=== PATIENT | female | born 1975 | race African-American/Black ===

== ENCOUNTER 2017-11-04 12:13 | Emergency (ER) | payer BC ==
[~2017-11-04] VITALS: Ht 154.9 cm; Wt 68.0 kg
[2017-11-04 12:30] VITALS: BP 132/81
[2017-11-04 12:45] VITALS: BP 132/81
[2017-11-04 12:55] LABS: BASOPHILS % (AUTO) 1.4 % (0.0-2.0); EOSINOPHILS % (AUTO) 3.1 % (0.0-3.0); LYMPHOCYTES % (AUTO) 28.9 % (20.0-45.0); MEAN CORPUSCULAR HEMOGLOBIN 21.2 PG (27.0-31.0); MEAN CORPUSCULAR HGB CONC 28.8 G/DL (32.0-36.0); MEAN CORPUSCULAR VOLUME 74 FL (80-99); MEAN PLATELET VOLUME 5.9 FL (6.5-10.1); NEUTROPHILS % (AUTO) 57.7 % (45.0-75.0); PLATELET COUNT 440 K/UL (150-450); RED CELL DISTRIBUTION WIDTH 15.8 % (11.6-14.8); WHITE BLOOD COUNT 6.5 K/UL (4.8-10.8)
[2017-11-04 13:00] LABS: ANION GAP 8 mmol/L (5-15); CARBON DIOXIDE 28 MMOL/L (21-32); CHLORIDE 105 MMOL/L (98-107); CREATININE 0.9 MG/DL (0.55-1.30); GLOMERULAR FILTRATION RATE > 60 mL/min (>60); POTASSIUM 3.5 MMOL/L (3.5-5.1); SODIUM 141 MMOL/L (136-145)
[2017-11-04 13:04] LABS: ALANINE AMINOTRANSFERASE 10 U/L (12-78); AMYLASE 77 U/L (25-115); ASPARTATE AMINO TRANSFERASE 9 U/L (15-37); BILIRUBIN,DIRECT 0.1 MG/DL (0.0-0.3); PHOSPHORUS 3.3 MG/DL (2.5-4.9); TOTAL PROTEIN 7.8 G/DL (6.4-8.2)
[2017-11-04] MEDS ORDERED: Isentress 400mg tab ORAL SCH (13:30)
[2017-11-04] MEDS ORDERED: TRUVADA 200 MG1 EAC1 ORAL (13:35)
[2017-11-04] MEDS ORDERED: ISENTRESS400 MG ORAL (13:35)
--- NOTE | 2017-11-05 12:35 | Emergency Room Report ---
History of Present Illness General Chief Complaint: General Complaint Source: Patient Present Illness HPI The patient is a 42-year-old female presenting for left index finger needlestick injury. She states that she was injecting her father who has HIV and after removing the needle from him she stuck her left index finger. She states that she cleaned the area with soap and water. This occurred last night. She denies any other known medical conditions of her father but states that hepatitis is unlikely. She denies any pain. She denies any other symptoms. She denies any medical history for herself Allergies: Coded Allergies: No Known Allergies (Unverified , 11/04/17) Patient History Past Medical History: see triage record Pertinent Family History: none Last Menstrual Period: 10/31/2017 Reviewed Nursing Documentation: PMH: Agreed, PSxH: Agreed Nursing Documentation-PM Past Medical History: No Stated History Review of Systems All Other Systems: negative except mentioned in HPI Physical Exam Vital Signs Date Time Temp Pulse Resp B/P (MAP) Pulse Ox O2 Delivery O2 Flow Rate FiO2 11/04/17 12:20 97.9 82 16 132/81 100 Room Air Sp02 EP Interpretation: reviewed, normal General Appearance: no apparent distress, alert, GCS 15, non-toxic Head: normocephalic, atraumatic Eyes: bilateral eye normal inspection, bilateral eye PERRL ENT: hearing grossly normal, normal pharynx, no angioedema, normal voice Neck: full range of motion, supple/symm/no masses Respiratory: chest non-tender, lungs clear, normal breath sounds, speaking full sentences Musculoskeletal: back normal, gait/station normal, normal range of motion Neurologic: alert, oriented x3, responsive, motor strength/tone normal, sensory intact, speech normal Psychiatric: judgement/insight normal, memory normal, mood/affect normal, no suicidal/homicidal ideation Skin: normal turgor, laceration - Left index finger distal palmar surface has a small erythematous lesion consistent with a needle stick injury. No bleeding Lymphatic: no adenopathy Medical Decision Making PA Attestation Dr. Tobar is my supervising physician. Patient management was discussed with my supervising physician Diagnostic Impression: Primary Impression: HIV exposure ER Course The patient is a 42-year-old female presenting for left index finger needlestick injury Differential diagnoses considered but not limited to: HIV exposure, hepatitis exposure, laceration, contusion PE: NAD Left index finger distal palmar surface has a small erythematous lesion consistent with a needle stick injury. No bleeding No surrounding erythema All blood work is unremarkable. HIV test is negative The patient be treated with two anti-virals every 2 known HIV exposure. She will follow up with her primary doctor within 30 days. ER precautions given Laboratory Tests Test 11/04/17 12:40 White Blood Count 6.5 K/UL (4.8-10.8) Red Blood Count 4.50 M/UL (4.20-5.40) Hemoglobin 9.6 G/DL (12.0-16.0) L Hematocrit 33.2 % (37.0-47.0) L Mean Corpuscular Volume 74 FL (80-99) L Mean Corpuscular Hemoglobin 21.2 PG (27.0-31.0) L Mean Corpuscular Hemoglobin Concent 28.8 G/DL (32.0-36.0) L Red Cell Distribution Width 15.8 % (11.6-14.8) H Platelet Count 440 K/UL (150-450) Mean Platelet Volume 5.9 FL (6.5-10.1) L Neutrophils (%) (Auto) 57.7 % (45.0-75.0) Lymphocytes (%) (Auto) 28.9 % (20.0-45.0) Monocytes (%) (Auto) 9.0 % (1.0-10.0) Eosinophils (%) (Auto) 3.1 % (0.0-3.0) H Basophils (%) (Auto) 1.4 % (0.0-2.0) Urine HCG, Qualitative Negative Sodium Level 141 MMOL/L (136-145) Potassium Level 3.5 MMOL/L (3.5-5.1) Chloride Level 105 MMOL/L (98-107) Carbon Dioxide Level 28 MMOL/L (21-32) Anion Gap 8 mmol/L (5-15) Blood Urea Nitrogen 8 mg/dL (7-18) Creatinine 0.9 MG/DL (0.55-1.30) Estimate Glomerular Filtration Rate > 60 mL/min (>60) Glucose Level 90 MG/DL (74-106) Calcium Level 9.0 MG/DL (8.5-10.1) Phosphorus Level 3.3 MG/DL (2.5-4.9) Total Bilirubin 0.5 MG/DL (0.2-1.0) Direct Bilirubin 0.1 MG/DL (0.0-0.3) Aspartate Amino Transferase (AST) 9 U/L (15-37) L Alanine Aminotransferase (ALT) 10 U/L (12-78) L Alkaline Phosphatase 56 U/L (46-116) Total Protein 7.8 G/DL (6.4-8.2) Albumin 3.6 G/DL (3.4-5.0) Amylase Level 77 U/L (25-115) Hepatitis B Surface Antibody Pending Hepatitis C Antibody Pending HIV (1&2) Antibody Rapid Negative (NEGATIVE) Lab Results Impression All blood work is unremarkable. HIV test is negative Last Vital Signs Date Time Temp Pulse Resp B/P (MAP) Pulse Ox O2 Delivery O2 Flow Rate FiO2 11/04/17 12:45 98.0 82 16 132/81 100 Room Air Status: improved Disposition: HOME, SELF-CARE Condition: Improved Scripts Raltegravir (Isentress) 400 Mg Tablet 400 MG ORAL EVERY 12 HOURS, #60 TAB Prov: CHARLES JOE.Magaly. 11/04/17 Emtricitabine/Tenofovir 200-300MG* (TRUVADA 200-300MG*) 1 Each Tablet 1 TAB ORAL DAILY, #30 TAB Prov: CHARLES JOE.Magaly. 11/04/17 Patient Instructions: Needle Stick Injury Additional Instructions: I discussed my findings with the patient. All questions and concerns have been answered. Treatment and medication compliance have been addressed. Return to ED if symptoms worsen, new symptoms arise, or if needed for any reason. Patient verbalized understanding of discharge instructions. You were informed to see your primary doctor within one month for follow up. CHARLES JOE Nov 05, 2017 12:35
== END 2017-11-04 14:35 | disposition home or self-care (01) ==
LOC: EMR 13:20
DX: S61.211A Laceration without foreign body of left index finger without damage to nail, initial encounter (principal); W46.0XXA Contact with hypodermic needle, initial encounter; Y92.9 Unspecified place or not applicable; Z20.6 Contact with and (suspected) exposure to human immunodeficiency virus [HIV]
CPT/HCPCS: 36415; 80069; 80076; 81025; 82150; 85025; 86703; 86803; 87517; 99283

== ENCOUNTER 2018-01-30 06:17 | Emergency (ER) | payer SELFPAY ==
[~2018-01-30] VITALS: Ht 162.6 cm; Wt 80.7 kg
[~2018-01-30 06:17] MED LIST: ISENTRESS400 MG ORAL; TRUVADA 200 MG1 EAC1 ORAL
[2018-01-30] MEDS ORDERED: IBUPROFEN600 MG ORAL (06:49)
--- NOTE | 2018-01-30 06:49 | Emergency Room Report ---
History of Present Illness General Chief Complaint: Shoulder Injury Source: Patient Present Illness HPI 42-year-old female, no significant past medical history, presenting with left shoulder pain. Patient she was sleeping, and she reached over her arm and she felt something pop in and out. Patient denies having her shoulder dislocated before. Fall or hit her head. Complaining of left shoulder pain worsened with any movement Allergies: Coded Allergies: No Known Allergies (Unverified , 11/04/17) Patient History Past Medical History: see triage record Past Surgical History: none Pertinent Family History: none Reviewed Nursing Documentation: PMH: Agreed, PSxH: Agreed Nursing Documentation-PMH Past Medical History: No Stated History Review of Systems All Other Systems: negative except mentioned in HPI Physical Exam Vital Signs Date Time Temp Pulse Resp B/P (MAP) Pulse Ox O2 Delivery O2 Flow Rate FiO2 01/30/18 06:19 98.0 86 18 130/86 98 Room Air 98.1 Sp02 EP Interpretation: reviewed, normal General Appearance: alert, GCS 15, non-toxic, moderate distress Head: normocephalic, atraumatic Eyes: bilateral eye normal inspection, bilateral eye PERRL, bilateral eye EOMI ENT: normal ENT inspection, normal pharynx, normal voice, moist mucus membranes Neck: normal inspection, full range of motion, supple Respiratory: normal inspection, lungs clear, normal breath sounds, no respiratory distress, no retraction, no wheezing, speaking full sentences, chest symmetrical Cardiovascular #1: normal inspection, regular rate, rhythm, normal capillary refill Cardiovascular #2: 2+ radial (R), 2+ radial (L) Gastrointestinal: normal inspection, non tender, soft, non-distended, no guarding Musculoskeletal: other - Anterior shoulder tendon palpation, limited range of motion secondary to pain, humeral head is not palpated anteriorly, no gross bony deformities, full range of motion of elbow and wrist Neurologic: normal inspection, alert, oriented x3, responsive, motor strength/ tone normal, sensory intact, normal gait, speech normal, other - M/U/R nerves intact Psychiatric: normal inspection, judgement/insight normal, memory normal Skin: normal inspection, normal color, no rash, warm/dry, well hydrated, normal turgor Procedures Splinting Splinting : Consent: Verbal Location: L shoulder Pre-Made Type: shoulder immobilizer Pre-Proc Neuro Vasc Exam: normal Post-Proc Neuro Vasc Exam: normal Patient Tolerated: Well Complications: None Medical Decision Making Diagnostic Impression: Primary Impression: Proximal humerus fracture ER Course 42-year-old female left shoulder pain DDX: Contusion versus dislocation vs. fracture Plan: Pain control with motrin XR ER course: prox humerus fracture, pt place in shoulder immobilizer Disposition: Patient is to be discharged home with a prescription of motrin. Strict precautions discussed with patient on when to return to the emergency room including increased redness or swelling joints, increased pain/swelling of extremity, fever or chills, which could indicate severe illness. Patient is to follow up with orthopedic surgeon in 1 week without fail Please note that this Emergency Department Report was dictated using [employer] technology software, occasionally this can lead to erroneous entry secondary to interpretation by the dictation equipment. Xray ordered: Left shoulder Complete Indication: Pain EP Interpretation: Yes Interpretation: +PROX HUMERUS FX Impression: prox humerus fx Electronically signed by Ishmael Longoria MD Last Vital Signs Date Time Temp Pulse Resp B/P (MAP) Pulse Ox O2 Delivery O2 Flow Rate FiO2 01/30/18 06:19 98.0 86 18 130/86 98 Room Air 98.1 Disposition: HOME, SELF-CARE Condition: Improved Scripts Ibuprofen* (MOTRIN*) 600 Mg Tablet 600 MG ORAL Q8H Y for For Pain, #30 TAB 0 Refills Prov: Ishmael Longoria M.D. 01/30/18 Patient Instructions: Shoulder Pain Ishmael Longoria M.D. Jan 30, 2018 06:49
[2018-01-30 07:26] VITALS: BP 127/85
[2018-01-30 07:59] VITALS: BP 127/85
--- NOTE | 2018-01-30 11:21 | Diagnostic Imaging Report ---
Indication: left shoulder pain Findings: 3 views of the left shoulder were obtained. There is an acute fracture of the neck of the left humerus. Fracture of the greater tuberosity also noted. Glenohumeral joint appears normal in alignment. IMPRESSION: Acute fracture
== END 2018-01-30 08:03 | disposition home or self-care (01) ==
LOC: EMR 06:40
DX: M25.512 Pain in left shoulder (principal); S42.202A Unspecified fracture of upper end of left humerus, initial encounter for closed fracture; X58.XXXA Exposure to other specified factors, initial encounter; Y92.9 Unspecified place or not applicable
CPT/HCPCS: 29240; 99283